=== PATIENT | female | born 1965 | race Caucasian/White ===

== ENCOUNTER 2018-03-01 11:00 | Inpatient (IN) | payer OTHER ==
[~2018-03-01] VITALS: Ht 154.9 cm; Wt 86.2 kg
[2018-03-01] MEDS ORDERED: FORTAMET1000 MG PO (14:22)
[2018-03-01] MEDS ORDERED: SYNTHROID75 MCG PO (14:23)
[2018-03-01] MEDS ORDERED: FARXIGA10 MG PO (14:23)
[2018-03-01] MEDS ORDERED: LIPITOR40 MG PO (14:23)
[2018-03-01] MEDS ORDERED: ENALAPRIL MALEA10 MG PO (14:23)
== END 2018-03-10 15:41 | DRG 470 ==
LOC: SURG 03-08 08:00 → O/R 03-08 08:00 → SURH 03-08 10:00 → SURG 03-08 17:04
PROVIDERS: Orthopaedic Surgery
PROC: 0SRD0J9 Replacement of Left Knee Joint with Synthetic Substitute, Cemented, Open Approach (ICD-10-PCS; principal; 2018-03-08 10:00)
DX: M17.12 Unilateral primary osteoarthritis, left knee (principal); M85.462 Solitary bone cyst, left tibia and fibula; I10 Essential (primary) hypertension; E11.9 Type 2 diabetes mellitus without complications